=== PATIENT | male | born 1950 | race Caucasian/White ===

== ENCOUNTER 2023-09-26 11:13 | Emergency (ER) | payer OTHER, SELFPAY ==
[2023-09-26 11:25] VITALS: BP 159/79
[2023-09-26 11:50] LABS: % Basophils 0.8 % (0-2); % Eosinophils 0.5 % (0-6); % Immature Granulocytes 0.1 % (0-0.5); % Lymphocytes 22.2 % (20.5-51.1); % Monocytes 10.3 % (1.7-9.3); % Neutrophils 66.1 % (42.2-75.2); Absolute Basophils 0.1 10^3/uL (0-0.2); Absolute Lymphocytes 1.7 10^3/uL (1.2-3.4); Absolute Monocytes 0.8 10^3/uL (0.1-0.6); Absolute Neutrophils 5.1 10^3/uL (1.4-6.5); Hematocrit 39.5 % (39.0-52.0); Hemoglobin 13.3 g/dL (13.0-18.0); Mean Corp Hgb Conc. 33.7 g/dL (33.0-37.0); Mean Corpuscular Hgb 30.1 pg (27.0-31.0); Mean Corpuscular Volume 89.4 fL (80.0-94.0); Nucleated Red Blood Cells % 0 % (-); Platelet Count 186 10^3/uL (130-400); Red Blood Cell Count 4.42 10^6/uL (4.70-6.10); White Blood Cell Count 7.8 10^3/uL (4.8-10.8)
[2023-09-26 12:01] LABS: ALT (SGPT) 13 U/L (0-50); AST (SGOT) 29 U/L (17-59); Albumin 4.1 g/dl (3.5-5.0); Alkaline Phosphatase 65 U/L (38-126); Blood Urea Nitrogen 26 mg/dl (9-20); Calcium 9.1 mg/dl (8.4-10.2); Carbon Dioxide 24 mmol/L (22-30); Chloride 108 mmol/L (98-107); Glucose 87 mg/dl (70-99); Potassium 4.9 mmol/L (3.5-5.1); Sodium 139 mmol/L (135-145); Total Bilirubin 0.8 mg/dl (0.2-1.3)
[2023-09-26] MEDS: ZOFRAN 4 MG IV (13:06)
[2023-09-26] MEDS: NSS 1000 IV (13:07)
[2023-09-26] MEDS: MORPHINE SULFATE 4 MG IV (13:07)
[2023-09-26 13:36] VITALS: BP 153/74
--- NOTE | 2023-09-26 14:08 | ED.GENMED ---
History of Present Illness
General
Chief Complaint: Flank Pain
Source: patient
Time Seen by Provider: 09/26/23 12:36
History of Present Illness
History of Present Illness:
73-year-old male presenting to the emergency department at the request of his primary care provider for evaluation after he was awoken suddenly around 2 AM with right-sided flank pain, was able to be somewhat calmed with 1 tablet of Advil to allow
him to fall back to sleep. Awoke again at 6 AM to get ready for work with the continued discomfort so he took an additional 2 tablets of Advil. Upon getting to work he still had significant discomfort and some urinary frequency prompting him to go
to his primary care's office. At the primary care's office patient had hematuria and was recommended to come to the ER with suspicion for a kidney. Patient denies any nausea or vomiting. He is still noting some significant discomfort into his
right flank. Pain is radiating towards the right groin. He denies any fevers, chills, rigors. Denies any history of previous kidney stones in the past. No other concerns.
Past History
Past History
ED Past Medical History: Hypothyroidism
ED Past Surgical History: Orthopedic
Social History
Tobacco: Non-smoker
Alcohol: None
Drug: None
Personal:
Living: with family
Employment: Employed
Review of Systems
Review of Systems
All Other Systems: ROS reviewed and negative except as documented in HPI and ROS
Phy Exam
Physical Exam
Physical Exam:
GENERAL: Alert , Appears quite uncomfortable
EYE: clear conjunctiva b/l
HEAD: NCAT
ENT: mmm.
ABDOMEN: Soft, without focal tenderness, no r/g, right-sided CVA tenderness
NEUROLOGICAL: Alert and oriented
SKIN: Warm and dry, skin intact.
MUSCULOSKELETAL: No edema, well perfused.
PSYCH: Normal and appropriate interaction.
Scores
Heart Failure Risk
Heart Failure Risk Score: Not Applicable
Heart Score for Chest Pain Patients
STEMI patient?: Not applicable
Withdrawal Assessment of Alcohol
Withdrawal Assessment Completed?: Not applicable
Course
Orders/Labs/Results
Orders:
Orders
09/26/23 11:37
CMP [Comprehensive Metabolic Panel] Urgent
Complete Blood Count/With Diff Urgent
09/26/23 12:49
CT Abd/pel Without Iv Or Oral Urgent
Comment:
Reason For Exam: right flank pain, hematuria, ASHLEY
0.9% Sodium Chloride 1000 ml [Nss] 1,000 ml IV BOLUS
Morphine Sulfate 4 mg IV NOW STA
Ondansetron Injectable [Zofran] 4 mg IV NOW STA
09/26/23 13:19
Urinalysis Reflex To Culture Urgent
Date Specimen was Collected: 09/26/23
Time Specimen was Collected: 13:19
Abnormal Lab Results
09/26/23
11:37
RBC 4.42 L 10^6/uL
(4.70-6.10)
MPV 11.0 H fL
(7.4-10.4)
Absolute Monos (auto) 0.8 H 10^3/uL
(0.1-0.6)
Monocytes % 10.3 H %
(1.7-9.3)
Chloride 108 H mmol/L
(98-107)
BUN 26 H mg/dl
(9-20)
Creatinine 1.7 H mg/dL
(0.7-1.3)
09/26/23 11:37
09/26/23 11:37
Vital Signs
Initial and Last Documented VS:
Initial Vital Signs
Temp Pulse Resp BP Pulse Ox
97.9 F 51 20 159/79 99
09/26/23 11:25 09/26/23 11:25 09/26/23 11:25 09/26/23 11:25 09/26/23 11:25
Last Documented Vital Signs
Temp Pulse Resp BP Pulse Ox
97.9 F 53 20 153/74 99
09/26/23 11:25 09/26/23 13:36 09/26/23 13:36 09/26/23 13:36 09/26/23 13:36
MDM/Problems Addressed
Differential Diagnosis Includes:
Renal/ureteral colic, urinary tract infection (patient does not have any signs of this on his urinalysis at the primary's office), musculoskeletal back pain
MDM/Problems Addressed:
73-year-old male presenting the emergency department for evaluation of sudden onset right flank pain around 2 AM this morning. He had microscopic hematuria on urinalysis at primary care's office. Patient in considerable discomfort/pain here in the
ER. Labs have been initiated on arrival which show a creatinine of 1.7 and a GFR of 42. No known history of renal insufficiency. Renal/ureteral colic high on differential. Fluids ordered. Pain control ordered trying to avoid nephrotoxic agents.
CT ordered. Reassessment following
*Radiology
Radiology exam reviewed: radiology read reviewed
*Pulse Oximetry
Patient hypoxic: no
*Critical Care Note
Total Time (30-74mins, 75-104mins- exclusive of procedures): Not Applicable
Patient Management
Discussion with other providers: Communications Project Lead
Escalation/DeEscalation of care consider admission/obs:
Patient CT scan shows a 3 and half millimeter partially obstructing calculus at the right UPJ associated with minimal right hydronephrosis. Patient also has a hypodense mass measuring 6 Millimeters in the upper right kidney with differential being
a complex cyst. Neoplasm is also in the differential and radiology recommending an outpatient MRI. Given patient's renal insufficiency I discussed this with urology who states due to the size of the stone they still think it is reasonable for
trial of stone passage at home as long as patient's pain is controlled and that they could follow-up with the patient this week to go over his CT scan and options for treatment if need be. Patient preferred to be discharged home as opposed to
admitted which I do think is reasonable. Prescriptions for Flomax, oxycodone and naproxen sent to pharmacy. I also notified patient's primary care provider who had sent the patient to the ER of these findings. Patient aware of return precautions
to the emergency department
ED Attending Note
-
Portions of this chart may have been created with voice recognition software.� Occasional wrong word or��sound alike� substitutions may have occurred due to the inherent limitations of voice recognition software.
Discharge Plan
Departure
Patient Disposition: Home (Routine Discharge)
Date of Disposition: 09/26/23
Time of Disposition: 14:11
Patient with high blood pressure during this ER visit?: Yes
Discharge Problem:
Ureterolithiasis
Instructions: Kidney Stones (DC)
Prescriptions:
New
oxycodone 5 mg tablet
5 mg PO BID PRN (Reason: Pain) Qty: 8 0RF
naproxen 500 mg tablet
500 mg PO BID PRN (Reason: Pain) Qty: 15 0RF
tamsulosin [Flomax] 0.4 mg capsule
0.4 mg PO DAILY Qty: 20 0RF
Referrals:
Alcides Baez MD [Active] - (Urology)
Kelvin Gallegos MD [Family Provider] -
Interventions
Interventions:
*Risk Screen - Suicide Last Done: 09/26/23 12:37
*General Assessment Last Done: 09/26/23 12:37
*Neglect/Abuse Screening Last Done: 09/26/23 12:37
ED- Fall Risk Assessment Last Done: 09/26/23 12:37
*ED COVID-19 Vaccine History Last Done: 09/26/23 12:37
*Nursing Disposition Last Done: 09/26/23 14:33
BD-Koouht-Zvikebfgwl Assessment Last Done: 09/26/23 12:37
ED-Male Genitourinary Assessment Last Done: 09/26/23 12:37
Discharge Date and Time
Discharge Date/Time: 09/26/23 14:43
Print Language: CITIZEN OF [place]
== END 2023-09-26 14:43 | disposition home or self-care (01) ==
LOC: EMR 11:13
PROVIDERS: Emergency Medicine; EMERGENCY PHYSICIAN Emergency Medicine; FAMILY PHYSICIAN Family Medicine
DX: N13.2 Hydronephrosis with renal and ureteral calculous obstruction (principal)
CPT/HCPCS: 99284; 96374; 96375; 96361; 74176; 80053; 85025

== ENCOUNTER → 2023-09-28 13:10 | Outpatient (REF) | payer OTHER, SELFPAY | LOC: RAD 13:10 | PROVIDERS: ATTENDING PHYSICIAN Specialist; FAMILY PHYSICIAN Family Medicine | DX: N20.1 Calculus of ureter (principal) | CPT/HCPCS: 74018 ==

== ENCOUNTER 2024-05-18 12:35 | Emergency (ER) | payer OTHER, SELFPAY ==
[2024-05-18 12:41] VITALS: BP 161/83
--- NOTE | 2024-05-18 13:52 | ED.GENMED ---
History of Present Illness
General
Chief Complaint: Musculo-Skeletal Complaint
Time Seen by Provider: 05/18/24 13:34
History of Present Illness
History of Present Illness:
74-year-old male presents the emergency department for evaluation of right chest wall pain after a fall. He slipped on ice on his driveway and landed on his back earlier this morning. He has pain when moving or when taking deep breaths. Denies
hemoptysis or hematuria. Does not take any anticoagulants
Past History
Past History
ED Past Medical History: Hypothyroidism
ED Past Surgical History: Orthopedic
Social History
Tobacco: Non-smoker
Alcohol: None
Drug: None
Personal:
Living: with family
Employment: Employed
Review of Systems
Review of Systems
Allergies reviewed?: Yes
All Other Systems: ROS reviewed and negative except as documented in HPI and ROS
Phy Exam
Physical Exam
Physical Exam:
GEN: Well appearing, NAD, WDWN
Eyes: PERRLA, EOMs intact, no scleral icterus
HENT: NCAT, oral mucosa moist
Lungs: CTAB, no wheezes, rales, rhonchi, normal chest wall excursion
Cardiac: RRR, no M/R/G, no peripheral edema. Radial pulses 2+ bilat
Chest: No abnormal chest wall motion, no ecchymosis, focal tenderness to the right posterior lower ribs, no crepitus
Abdomen: S, NT, ND, NABS, no masses or hepatosplenomegaly
Neuro: AO x 3, no focal deficits to BUE/BLE, normal sensation throughout
MSK: No gross deformity or ecchymosis. No edema. No digital clubbing
Skin: No rashes, petechiae. Normal color, no pallor or jaundice.
Psych: Calm, cooperative, proper hygiene
Course
Orders/Labs/Results
Orders:
Orders
05/18/24 13:52
Ketorolac [Toradol] 30 mg IM NOW STA
CR Chest - 2 Views Urgent
Comment:
Reason For Exam: L chest wall injury
Vital Signs
Initial and Last Documented VS:
Initial Vital Signs
Temp Pulse Resp BP Pulse Ox
97.9 F 55 20 161/83 98
05/18/24 12:41 05/18/24 12:41 05/18/24 12:41 05/18/24 12:41 05/18/24 12:41
Last Documented Vital Signs
Temp Pulse Resp BP Pulse Ox
97.9 F 55 20 161/83 98
05/18/24 12:41 05/18/24 12:41 05/18/24 12:41 05/18/24 12:41 05/18/24 12:41
MDM/Problems Addressed
MDM/Problems Addressed:
Chest x-ray shows no evidence for hemopneumothorax or pulmonary contusion. Likely minor rib fracture, discussed supportive care and use of incentive spirometer
*Critical Care Note
Total Time (30-74mins, 75-104mins- exclusive of procedures): Not Applicable
ED Attending Note
-
Portions of this chart may have been created with voice recognition software.� Occasional wrong word or��sound alike� substitutions may have occurred due to the inherent limitations of voice recognition software.
Discharge Plan
Departure
Patient Disposition: Home (Routine Discharge)
Date of Disposition: 05/18/24
Time of Disposition: 14:32
Patient with high blood pressure during this ER visit?: No
Discharge Problem:
Closed rib fracture
Instructions: How to use an incentive spirometer, Rib Fracture
Prescriptions:
New
methocarbamol 750 mg tablet
750 - 1,500 mg PO Q8H PRN (Reason: pain) Qty: 20 0RF
No Action
oxycodone 5 mg tablet
5 mg PO BID PRN (Reason: Pain) Qty: 8 0RF
naproxen 500 mg tablet
500 mg PO BID PRN (Reason: Pain) Qty: 15 0RF
tamsulosin [Flomax] 0.4 mg capsule
0.4 mg PO DAILY Qty: 20 0RF
Referrals:
Kelvin Gallegos MD [Family Provider] -
Activity Restrictions/Additional Instructions:
Use the muscle relaxer as needed for pain control
Use the incentive spirometer three times per day for 1 week
Ice the chest wall to alleivate pain
Follow up in the ER if symptoms worsen
Interventions
Interventions:
*Risk Screen - Suicide Last Done: 05/18/24 13:17
*General Assessment Last Done: 05/18/24 13:17
*Neglect/Abuse Screening Last Done: 05/18/24 13:17
ED- Fall Risk Assessment Last Done: 05/18/24 14:43
*ED COVID-19 Vaccine History Last Done: 05/18/24 13:17
*Nursing Disposition Last Done: 05/18/24 14:43
ED-Musculoskeletal Assessment Last Done: 05/18/24 13:17
Discharge Date and Time
Discharge Date/Time: 05/18/24 14:45
Print Language: [place]
[2024-05-18] MEDS: TORADOL 30 MG IM (14:07)
== END 2024-05-18 14:45 | disposition home or self-care (01) ==
LOC: EMR 12:35
PROVIDERS: EMERGENCY PHYSICIAN Emergency Medicine; FAMILY PHYSICIAN Family Medicine
DX: R07.89 Other chest pain (principal); W00.0XXA Fall on same level due to ice and snow, initial encounter; E03.9 Hypothyroidism, unspecified
CPT/HCPCS: 99283; 96372; 71046